=== PATIENT | male | born 1995 | race Caucasian/White ===

== ENCOUNTER 2023-02-18 09:52 | Outpatient (OUT) | payer MEDICAID, SELFPAY ==
--- NOTE | 2023-02-18 09:53 | XR_ITS ---
The [address] [address] Patient Name: KING POTTS MRN: [id number] date: 1995 Sex: M Assigned Patient Location: [facility] Current Patient Location: [facility] Accession/Order Number: [id number] Exam Date: 02/18/2023 09:52 Report Date: 02/18/2023 12:12 At the request of: CAMERON DRAKE Procedure: XR foot LT min 3V EXAM: XR foot LT min 3V HISTORY: LEFT FOOT PAIN COMPARISON: None. TECHNIQUE: 3 views left foot. FINDINGS: No fracture or dislocation left foot. Prior arthrodesis at the first MTP joint with dorsal plate and screw fixation with incomplete bony union. Tiny deformity and metallic fragments at the medial first proximal phalanx base again seen. No other interval acute process or significant change. IMPRESSION: Intact left first MTP joint ORIF. Electronically authenticated by: LEOPOLDO CHAMBERLAIN Date: 02/18/2023 12:12
== END 2023-02-18 09:53 | disposition home or self-care (01) ==
LOC: RAD 09:52
PROVIDERS: Visit Provider Physician Assistant
DX: S91.332D Puncture wound without foreign body, left foot, subsequent encounter (principal)
CPT/HCPCS: 73630